=== PATIENT | male | born 1945 | race Caucasian/White ===

== ENCOUNTER → 2022-02-25 | Outpatient (CLI) | payer MEDICARE | LOC: HEART 5 10:09 | DX: R09.02 Hypoxemia (principal) | CPT/HCPCS: 94010; 94729 ==

== ENCOUNTER → 2022-03-04 | Outpatient (CLI) | payer MEDICARE | LOC: ECHO 12:27 | DX: R06.00 Dyspnea, unspecified (principal); I08.3 Combined rheumatic disorders of mitral, aortic and tricuspid valves; I70.0 Atherosclerosis of aorta | CPT/HCPCS: ECHO; 93306 ==

== ENCOUNTER 2022-03-15 15:12 | Emergency (ER) | payer MEDICARE ==
[2022-03-15 15:47] LABS: HEMOGLOBIN 14.4 gm/dl (14.0-17.5); RED BLOOD COUNT 4.57 M/UL (4.20-5.50); WHITE BLOOD COUNT 12.4 K/UL (4.5-11.0)
[2022-03-15 16:19] LABS: BUN/CREATININE RATIO 23 (0-10)
== END 2022-03-15 17:00 | disposition home or self-care (01) ==
LOC: ER1 15:12
DX: U07.1 COVID-19 (principal); Z23 Encounter for immunization; E11.9 Type 2 diabetes mellitus without complications; F17.200 Nicotine dependence, unspecified, uncomplicated; Z88.5 Allergy status to narcotic agent; Z95.0 Presence of cardiac pacemaker
CPT/HCPCS: 71045; 80053; 82550; 82553; 84484; 85025; 93005; 99285; M0222